=== PATIENT | male | born 1940 | race Caucasian/White ===

== ENCOUNTER 2016-12-22 02:23 | Emergency (ER) | payer MEDICARE ==
[~2016-12-22] VITALS: Ht 180.3 cm; Wt 95.0 kg
[~2016-12-22 02:23] MED LIST: ASPI81TA82 PO; CARV12.5 PO; CENTTAB9 PO; CHLOR25 PO; GLUCTAB PO; LORA.5 PO; LORTA5 PO; NIFE1TAB86 PO; TAMS0.4C67 PO; TEMA15 PO
[2016-12-22 02:24] VITALS: BP 163/72; PULSE 62; RESP 16; TEMP 97.7; O2SAT 95
[2016-12-22 02:54] VITALS: BP 174/78; PULSE 62; RESP 18; O2SAT 97
[2016-12-22] MEDS ORDERED: SODIUM CHLOR 0.9% 1000 ML INJ 1,000 ML IV ONE (02:57)
[2016-12-22] MEDS ORDERED: SODIUM CHLORIDE 0.9% FLUSH 10 ML FLUSH IVF PRN (03:00)
[2016-12-22 03:15] VITALS: O2SAT 99
[2016-12-22 03:19] LABS: AUTOMATED NEUTROPHIL # 4.1 TH/MM3 (1.8-7.7); BASOPHIL # 0.1 TH/MM3 (0-0.2); BASOPHIL % 1.1 % (0.0-2.0); EOSINOPHIL # 0.5 TH/MM3 (0-0.4); EOSINOPHIL % 6.6 % (0.0-4.0); HEMATOCRIT 45.1 % (39.0-51.0); HEMO FLAGS DIFF FINAL; LYMPH % 24.3 % (9.0-44.0); LYMPHOCYTE # 1.8 TH/MM3 (1.0-4.8); MEAN CELL VOLUME 89.5 FL (80.0-100.0); MEAN CORPUSCULAR HEMOGLOBIN 29.4 PG (27.0-34.0); MEAN CORPUSCULAR HGB CONC 32.8 % (32.0-36.0); MONO % 12.3 % (0.0-8.0); NEUT % 55.7 % (16.0-70.0); PLATELET COUNT 180 TH/MM3 (150-450); RED BLOOD COUNT 5.03 MIL/MM3 (4.50-5.90); RED CELL DISTRIBUTION WIDTH 13.8 % (11.6-17.2); WHITE BLOOD COUNT 7.4 TH/MM3 (4.0-11.0)
[2016-12-22 03:34] LABS: BICARBONATE 30.5 MEQ/L (21.0-32.0); MAGNESIUM 2.1 MG/DL (1.5-2.5); POTASSIUM 4.2 MEQ/L (3.5-5.1)
--- NOTE | 2016-12-22 03:40 | PD ---
HPI Chief Complaint: Dizziness Time Seen by Provider: 02:57 Travel History International Travel<30 days: No Contact w/Intl Traveler<30days: No Traveled to known affect area: No History of Present Illness HPI 76 yo M had a brief episode of dizziness, lightheadedness in quality. Evidently he's had dizziness intermittently for the past couple days. Since the patient was in the hospital while visiting a family member and felt dizziness he decided to be seen in the ER. Additional complaints include a burning sensation in the eyes. He has had no visual change. He has had no chest pain or shortness of breath nausea vomiting fever or diaphoresis. No new medication or change in medications. No black stool. PFSH Past Medical History Hx Anticoagulant Therapy: Yes (81MG ASPIRIN) Cancer: No Cardiovascular Problems: Yes Diabetes: Yes (TYPE II) Patient Takes Glucophage: No Diminished Hearing: No Endocrine: Yes GERD: Yes Glaucoma: No Genitourinary: Yes (bph) Hepatitis: No Hiatal Hernia: Yes Hypertension: Yes Immune Disorder: No Medical other: Yes (GERD HX) Musculoskeletal: Yes (arthritis in hands) Neurologic: Yes (neuropathy feet) Reproductive: No Respiratory: Yes (SLEEP APNEA--USES C-PAP AT NIGHT) Immunizations Current: Yes Sleep Apnea: Yes (USES CPAP) Thyroid Disease: No Past Surgical History Abdominal Surgery: No AICD: No Cardiac Surgery: No Ear Surgery: No Endocrine Surgery: No Eye Surgery: Yes (r cataract repair ) Genitourinary Surgery: No Gynecologic Surgery: No Joint Replacement: No Oral Surgery: No Pacemaker: No Thoracic Surgery: No Other Surgery: Yes (DEJA RUPTURED QUADRACEP REPAIR) Social History Alcohol Use: Yes (OCCAS.) Tobacco Use: No Substance Use: No Allergies-Medications (Allergen,Severity, Reaction): Coded Allergies: No Known Allergies (Verified , 12/22/16) Reported Meds & Prescriptions Reported Meds & Active Scripts Active Review of Systems Except as stated in HPI: all other systems reviewed are Neg General / Constitutional: No: Fever, Chills Neurologic: Positive: Dizziness, No: Syncope, Focal Abnormalities, Coordination Problem, Tremor, Ataxia, Headache, Change in Mentation, Slurred Speech Physical Exam Narrative GENERAL: 76-year-old male pleasant well-nourished well-developed SKIN: Focused skin assessment warm/dry. HEAD: Atraumatic. Normocephalic. EYES: Pupils equal and round. No scleral icterus. No injection or drainage. ENT: No nasal bleeding or discharge. Mucous membranes pink and moist. NECK: Trachea midline. No JVD. CARDIOVASCULAR: Regular rate and rhythm. No murmur appreciated. RESPIRATORY: No accessory muscle use. Clear to auscultation. Breath sounds equal bilaterally. GASTROINTESTINAL: Abdomen soft, non-tender, nondistended. Hepatic and splenic margins not palpable. MUSCULOSKELETAL: No obvious deformities. No clubbing. No cyanosis. No edema. NEUROLOGICAL: Awake and alert. No obvious cranial nerve deficits. Motor grossly within normal limits. Normal speech. PSYCHIATRIC: Appropriate mood and affect; insight and judgment normal. Data Data Last Documented VS Vital Signs Date Time Temp Pulse Resp B/P Pulse Ox O2 Delivery O2 Flow Rate FiO2 12/22/16 03:52 166/68 12/22/16 03:50 61 18 95 Room Air 12/22/16 02:24 97.7 Vital signs reviewed Orders Electrocardiogram (12/22/16 02:57) Basic Metabolic Panel (Bmp) (12/22/16 02:57) Complete Blood Count With Diff (12/22/16 02:57) Magnesium (Mg) (12/22/16 02:57) Blood Glucose (12/22/16 02:57) Ecg Monitoring (12/22/16 02:57) Iv Access Insert/Monitor (12/22/16 02:57) Oximetry (12/22/16 02:57) Sodium Chloride 0.9% Flush (Ns Flush) (12/22/16 03:00) Sodium Chlor 0.9% 1000 Ml Inj (Ns 1000 M (12/22/16 02:57) Labs Laboratory Tests Test 12/22/16 03:03 White Blood Count 7.4 TH/MM3 Red Blood Count 5.03 MIL/MM3 Hemoglobin 14.8 GM/DL Hematocrit 45.1 % Mean Corpuscular Volume 89.5 FL Mean Corpuscular Hemoglobin 29.4 PG Mean Corpuscular Hemoglobin 32.8 % Concent Red Cell Distribution Width 13.8 % Platelet Count 180 TH/MM3 Mean Platelet Volume 9.3 FL Neutrophils (%) (Auto) 55.7 % Lymphocytes (%) (Auto) 24.3 % Monocytes (%) (Auto) 12.3 % Eosinophils (%) (Auto) 6.6 % Basophils (%) (Auto) 1.1 % Neutrophils # (Auto) 4.1 TH/MM3 Lymphocytes # (Auto) 1.8 TH/MM3 Monocytes # (Auto) 0.9 TH/MM3 Eosinophils # (Auto) 0.5 TH/MM3 Basophils # (Auto) 0.1 TH/MM3 CBC Comment DIFF FINAL Differential Comment Sodium Level 140 MEQ/L Potassium Level 4.2 MEQ/L Chloride Level 104 MEQ/L Carbon Dioxide Level 30.5 MEQ/L Anion Gap 6 MEQ/L Blood Urea Nitrogen 17 MG/DL Creatinine 1.24 MG/DL Estimat Glomerular Filtration 56 ML/MIN Rate Random Glucose 164 MG/DL Calcium Level 9.5 MG/DL Magnesium Level 2.1 MG/DL MDM Medical Decision Making Medical Screen Exam Complete: Yes Emergency Medical Condition: Yes Medical Record Reviewed: Yes Differential Diagnosis Anemia, arrhythmia, electrolyte imbalance, paresthesias, vasovagal episodes, dehydration, hypertension Narrative Course CBC & BMP Diagram 12/22/16 03:03 EKG shows a sinus rhythm at a rate of 61 without ischemic injury pattern or arrhythmia The workup is unremarkable and the patient will follow up with primary care provider. Diagnosis Primary Impression: Dizziness Referrals: Primary Care Physician 2 days Additional Instructions: You have a choice when it comes to health care, and we are glad that you chose [facility]. Hopefully, we have met your expectations on today's visit. You are welcome to return to [facility] at any time, as we are committed to meeting the health care needs of our community. Med/Other Pt SpecificInfo: No Change to Meds Disposition: 01 DISCHARGE HOME Condition: Stable Marty Sadler MD Dec 22, 2016 03:40
[2016-12-22 03:50] VITALS: BP 179/81; PULSE 61; RESP 18; O2SAT 95
[2016-12-22 03:52] VITALS: BP 166/68
--- NOTE | 2016-12-22 07:51 | EKG ---
Date Performed: 12/22/2016 Time Performed: 02:49:35 PTAGE: 76 years EKG: BASELINE ARTIFACT PRESENT. Probable Sinus rhythm NORMAL ECG COMPARED TO PRIOR ELECTROCARDIOGRAM, Both EKGs have significant artifact but rate has slo wed. PREVIOUS TRACING : 06/04/2015 19.30 DOCTOR: Yimi Patten Interpretating Date/Time 12/22/2016 07:50:11
== END 2016-12-22 04:36 | disposition home or self-care (01) ==
LOC: NEPE 02:23
DX: R42 Dizziness and giddiness (principal); E11.9 Type 2 diabetes mellitus without complications; I10 Essential (primary) hypertension
CPT/HCPCS: 80048; 83735; 85025; 93005; 99284; J7030

== ENCOUNTER 2017-02-05 18:06 | Emergency (ER) | payer MEDICARE ==
[~2017-02-05] VITALS: Ht 182.9 cm; Wt 95.5 kg
[2017-02-05 18:09] VITALS: BP 167/77; PULSE 74; RESP 22; TEMP 98.5; O2SAT 96
--- NOTE | 2017-02-05 18:16 | PD ---
Physical Exam Date Seen by Provider: Feb 05, 2017 Time Seen by Provider: 18:14 Narrative 76 yo male here for right leg swelling and redness. Seen by PCP today and sent here for evaluation of possible blood clot. Denies pain. Been swollen for a few days. No injuries. No other medical issues reported today. Vitals are stable in triage. Awaiting bed placement. Data Data Last Documented VS Vital Signs Date Time Temp Pulse Resp B/P Pulse Ox O2 Delivery O2 Flow Rate FiO2 02/05/17 18:09 98.5 74 22 167/77 96 Room Air [facility] Medical Record Reviewed: Yes Supervised Visit with DEACON: No Gerardo Landin Feb 05, 2017 18:15
--- NOTE | 2017-02-05 18:43 | PD ---
HPI Chief Complaint: Medical Clearance Time Seen by Provider: 18:43 Travel History International Travel<30 days: No Contact w/Intl Traveler<30days: No Traveled to known affect area: No History of Present Illness HPI 76-year-old male presents the emergency department with his son being seen in his primary care physician's office. 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 Patient is noted to have some erythematous discoloration to the right lower extremity with question of edema, so he was sent here for rule out of DVT. His nose that the patient has a fairly significant cough which is productive here, for which she states he's been placed on Keflex 500 mg 3 times a day 5 days ago. He states the sputum has gone from green to more of a clear, but he does have increased shortness of breath and wheezing with exertion. No history of COPD or smoking in the past. No history of asthma. He states he first thought it was more postnasal drip but now seems to be settled in his chest. He denies chest pain at this time. He denies fever, chills, or other symptoms. He denies significant pain in the right lower extremity. Patient was recently switched from aspirin to Plavix which she has not started at this time. He states his cough is been keeping him up at night for the past several days. He has no known drug allergies. PFSH Past Medical History Hx Anticoagulant Therapy: Yes (81MG ASPIRIN) Cancer: No Cardiovascular Problems: Yes Diabetes: Yes Diminished Hearing: No Endocrine: Yes GERD: Yes Glaucoma: No Genitourinary: Yes (bph) Hepatitis: No Hiatal Hernia: Yes Hypertension: Yes Immune Disorder: No Musculoskeletal: Yes (arthritis in hands) Neurologic: Yes (neuropathy feet) Reproductive: No Respiratory: Yes (SLEEP APNEA--USES C-PAP AT NIGHT) Immunizations Current: Yes Sleep Apnea: Yes (USES CPAP) Thyroid Disease: No Past Surgical History Abdominal Surgery: No AICD: No Cardiac Surgery: No Ear Surgery: No Endocrine Surgery: No Eye Surgery: Yes (r cataract repair ) Genitourinary Surgery: No Gynecologic Surgery: No Joint Replacement: No Oral Surgery: No Pacemaker: No Thoracic Surgery: No Other Surgery: Yes (DEJA RUPTURED QUADRACEP REPAIR) Social History Alcohol Use: Yes (OCCAS.) Tobacco Use: No Substance Use: No Allergies-Medications (Allergen,Severity, Reaction): Coded Allergies: No Known Allergies (Verified , 02/05/17) Reported Meds & Prescriptions Reported Meds & Active Scripts Active Ventolin Hfa 18 GM Inh (Albuterol Sulfate) 90 Mcg/Act Aer 2 Puff INH Q4-6H PRN Reported Keflex (Cephalexin) 500 Mg Capsule 500 Mg PO TID 10 Days Multi Vitamin Daily (Multiple Vitamin) 1 Tab Tab 1 Tab PO DAILY Fish Oil ([place]-3 Fatty Acids) 300 Mg Capsule 1 Tab PO DAILY Vitamin D3 (Cholecalciferol) 2,000 Unit Cap 2,000 Units PO DAILY Glucosamine 1,500 Mg Tab 1,500 Mg PO DAILY Co Q 10 (Coenzyme Q10 (Ubidecarenone)) 10 Mg Cap 1 Tab PO DAILY Tylenol (Acetaminophen) 325 Mg Tab 650 Mg PO Q6H PRN Zyrtec (Cetirizine HCl) 10 Mg Capsule 1 Tab PO DAILY Cymbalta DR (Duloxetine HCl) 30 Mg Capdr 30 Mg PO DAILY Gabapentin 300 Mg Cap 300 Mg PO HS Proscar (Finasteride) 5 Mg Tab 5 Mg PO DAILY Do not crush. Flomax (Tamsulosin HCl) 0.4 Mg Cap 0.4 Mg PO HS Metformin ER (Metformin HCl) 500 Mg Tab 1 Tab PO BID Procardia XL (Nifedipine) 60 Mg Tab 60 Mg PO BID Coreg (Carvedilol) 12.5 Mg Tab 12.5 Mg PO BID Review of Systems Except as stated in HPI: all other systems reviewed are Neg General / Constitutional: No: Fever, Chills Eyes: No: Visual changes HENT: Positive: Rhinitis, Rhinorrhea, Congestion, No: Headaches Cardiovascular: No: Chest Pain or Discomfort Respiratory: Positive: Cough, Shortness of Breath, Wheezing, No: Orthopnea, Hemoptysis, Night Sweats, Pleuritic Pain Gastrointestinal: No: Abdominal Pain Genitourinary: No: Dysuria Musculoskeletal: No: Pain Skin: No Rash Neurologic: No: Weakness Psychiatric: No: Depression Endocrine: No: Polydipsia Hematologic/Lymphatic: No: Easy Bruising Physical Exam Narrative GENERAL: Patient appears in no acute distress. SKIN: Warm and dry. Normal color. Normal turgor. Patient has a generalized mild erythema/ruborous discoloration to the right lower extremity from the knee to the anterior ankle with perhaps some mild edema noted. The right leg does not feel warm or cool to touch. HEAD: Atraumatic. Normocephalic. EYES: Pupils equal and round. No scleral icterus. No injection or drainage. ENT: No nasal bleeding or discharge. Mucous membranes pink and moist. NECK: Trachea midline. No JVD. CARDIOVASCULAR: Regular rate and rhythm. RESPIRATORY: No accessory muscle use. Patient has rhonchi and wheezing to the left lower lobe not cleared with cough. No obvious egophony. Breath sounds equal bilaterally. GASTROINTESTINAL: Abdomen soft, non-tender, nondistended. Hepatic and splenic margins not palpable. MUSCULOSKELETAL: Extremities without clubbing, cyanosis, less than 1+ nonpitting edema to the right lower extremity. No obvious deformities. Range of motion is full. Sensation is normal. Capillary refill is brisk. Negative Homans sign on the right. NEUROLOGICAL: Awake and alert. No obvious cranial nerve deficits. Motor grossly within normal limits. Five out of 5 muscle strength in the arms and legs. Normal speech. PSYCHIATRIC: Appropriate mood and affect; insight and judgment normal. Data Data Last Documented VS Vital Signs Date Time Temp Pulse Resp B/P Pulse Ox O2 Delivery O2 Flow Rate FiO2 02/05/17 21:31 80 18 207/89 97 Room Air 02/05/17 18:09 98.5 Orders Electrocardiogram (02/05/17 18:57) Complete Blood Count With Diff (02/05/17 18:57) Comprehensive Metabolic Panel (02/05/17 18:57) Chest, Pa & Lat (02/05/17 18:57) Ecg Monitoring (02/05/17 18:57) Iv Access Insert/Monitor (02/05/17 18:57) Oximetry (02/05/17 18:57) Oxygen Administration (02/05/17 18:57) Albuterol-Ipratropium Neb (Duoneb Neb) (02/05/17 19:00) Sodium Chloride 0.9% Flush (Ns Flush) (02/05/17 19:00) Us Leg Venous Doppler (02/05/17 18:57) Prothrombin Time / Inr (Pt) (02/05/17 18:57) Act Partial Throm Time (Ptt) (02/05/17 18:57) B-Type Natriuretic Peptide (02/05/17 19:36) Ckmb (Isoenzyme) Profile (02/05/17 19:00) Troponin I (02/05/17 19:00) CKMB (02/05/17 19:00) CKMB% (02/05/17 19:00) Carvedilol (Coreg) (02/05/17 21:30) Nifedipine Sr (Procardia Xl) (02/05/17 21:30) Labs Laboratory Tests Test 02/05/17 19:00 White Blood Count 10.4 TH/MM3 Red Blood Count 4.72 MIL/MM3 Hemoglobin 14.4 GM/DL Hematocrit 41.2 % Mean Corpuscular Volume 87.4 FL Mean Corpuscular Hemoglobin 30.4 PG Mean Corpuscular Hemoglobin 34.8 % Concent Red Cell Distribution Width 13.7 % Platelet Count 251 TH/MM3 Mean Platelet Volume 9.6 FL Neutrophils (%) (Auto) 65.3 % Lymphocytes (%) (Auto) 17.7 % Monocytes (%) (Auto) 10.9 % Eosinophils (%) (Auto) 5.2 % Basophils (%) (Auto) 0.9 % Neutrophils # (Auto) 6.8 TH/MM3 Lymphocytes # (Auto) 1.8 TH/MM3 Monocytes # (Auto) 1.1 TH/MM3 Eosinophils # (Auto) 0.5 TH/MM3 Basophils # (Auto) 0.1 TH/MM3 CBC Comment DIFF FINAL Differential Comment Prothrombin Time 10.4 SEC Prothromb Time International 0.9 RATIO Ratio Activated Partial 29.9 SEC Thromboplast Time Sodium Level 136 MEQ/L Potassium Level 3.8 MEQ/L Chloride Level 103 MEQ/L Carbon Dioxide Level 24.2 MEQ/L Anion Gap 9 MEQ/L Blood Urea Nitrogen 19 MG/DL Creatinine 1.27 MG/DL Estimat Glomerular Filtration 55 ML/MIN Rate Random Glucose 117 MG/DL Calcium Level 8.9 MG/DL Total Bilirubin 0.6 MG/DL Aspartate Amino Transf 22 U/L (AST/SGOT) Alanine Aminotransferase 26 U/L (ALT/SGPT) Alkaline Phosphatase 90 U/L Total Creatine Kinase 176 U/L Creatine Kinase MB 7.5 NG/ML Troponin I LESS THAN 0.02 NG/ML B-Type Natriuretic Peptide 83 PG/ML Total Protein 7.7 GM/DL Albumin 3.6 GM/DL MDM Medical Decision Making Medical Screen Exam Complete: Yes Emergency Medical Condition: Yes Medical Record Reviewed: Yes Differential Diagnosis Possible right lower leg DVT. Bronchitis. Pneumonia. Possible PE. Narrative Course Patient appears medically stable at time of exam. Chest x-ray PA and lateral is ordered as well as DuoNeb 1. Laboratory including CBC, CMP, and proBNP. EKG shows sinus rhythm with occasional VPCs but without significant ST-T changes. This is reviewed with Dr. Rudd. CBC is unremarkable. CMP is unremarkable. Troponin is negative. ProBNP is 83. Chest x-ray shows no acute process per radiologist. Lower extremity ultrasound shows no acute process or DVT. Patient did improve with DuoNeb symptomatically. Patient should continue his Keflex as previously prescribed and use albuterol metered-dose inhaler 2 puffs every 4-6 hours when necessary cough and wheeze. Patient should follow with his primary care physician as needed. Diagnosis Primary Impression: Wheezy bronchitis Additional Impression: Edema of right lower extremity Referrals: Primary Care Physician Patient Instructions: General Instructions, How to Use a Metered-Dose Inhaler ( ED), Leg Edema (ED), Wheezing (ED) Additional Instructions: EKG shows sinus rhythm with occasional VPCs but without significant ST-T changes. This is reviewed with Dr. Rudd. CBC is unremarkable. CMP is unremarkable. Troponin is negative. ProBNP is 83. Chest x-ray shows no acute process per radiologist. Lower extremity ultrasound shows no acute process or DVT. Patient did improve with DuoNeb symptomatically. Patient should continue his Keflex as previously prescribed and use albuterol metered-dose inhaler 2 puffs every 4-6 hours when necessary cough and wheeze. Patient should follow with his primary care physician as needed. Scripts Albuterol 18 GM Inh (Ventolin Hfa 18 GM Inh)90 Mcg/Act Aer2 Puff INH Q4-6H PRN ( SHORTNESS OF BREATH) #1 INHALER Prov:Britney Sanchez 02/05/17 Condition: Stable [place] Feb 05, 2017 18:43
[2017-02-05] MEDS ORDERED: RESP: ALBUTEROL 2.5 MG/IPRATROPIUM 0.5 MG NEB (SCH) INH ONE (19:00)
[2017-02-05] MEDS ORDERED: SODIUM CHLORIDE 0.9% FLUSH 10 ML FLUSH IVF PRN (19:00)
[2017-02-05] MEDS ORDERED: OMEG300C5 PO (19:03)
[2017-02-05] MEDS ORDERED: TAMS5CAP PO (19:03)
[2017-02-05] MEDS ORDERED: NIFE1TAB86 PO (19:03)
[2017-02-05] MEDS ORDERED: PROS5TAB PO (19:03)
[2017-02-05] MEDS ORDERED: VITA2000 PO (19:03)
[2017-02-05] MEDS ORDERED: GABA300C5 PO (19:03)
[2017-02-05] MEDS ORDERED: CEPH-460 PO (19:03)
[2017-02-05] MEDS ORDERED: CARV12.5 PO (19:03)
[2017-02-05] MEDS ORDERED: MULT1TAB46 PO (19:03)
[2017-02-05] MEDS ORDERED: CETI10CA3 PO (19:03)
[2017-02-05] MEDS ORDERED: CYMB30CA PO (19:03)
[2017-02-05] MEDS ORDERED: GLUC15009 PO (19:03)
[2017-02-05] MEDS ORDERED: CO Q10CA PO (19:03)
[2017-02-05] MEDS ORDERED: TYLE325T PO (19:03)
[2017-02-05] MEDS ORDERED: METF-639 PO (19:03)
[2017-02-05 19:14] VITALS: RESP 18; O2SAT 97
[2017-02-05 19:15] VITALS: BP 201/95; PULSE 68; RESP 18; O2SAT 97
[2017-02-05 19:37] LABS: AUTOMATED NEUTROPHIL # 6.8 TH/MM3 (1.8-7.7); BASOPHIL # 0.1 TH/MM3 (0-0.2); BASOPHIL % 0.9 % (0.0-2.0); EOSINOPHIL # 0.5 TH/MM3 (0-0.4); EOSINOPHIL % 5.2 % (0.0-4.0); HEMATOCRIT 41.2 % (39.0-51.0); HEMO FLAGS DIFF FINAL; LYMPH % 17.7 % (9.0-44.0); LYMPHOCYTE # 1.8 TH/MM3 (1.0-4.8); MEAN CELL VOLUME 87.4 FL (80.0-100.0); MEAN CORPUSCULAR HEMOGLOBIN 30.4 PG (27.0-34.0); MEAN CORPUSCULAR HGB CONC 34.8 % (32.0-36.0); MONO % 10.9 % (0.0-8.0); NEUT % 65.3 % (16.0-70.0); PLATELET COUNT 251 TH/MM3 (150-450); RED BLOOD COUNT 4.72 MIL/MM3 (4.50-5.90); RED CELL DISTRIBUTION WIDTH 13.7 % (11.6-17.2); WHITE BLOOD COUNT 10.4 TH/MM3 (4.0-11.0)
[2017-02-05 19:53] LABS: APTT (PATIENT) 29.9 SEC (24.3-30.1); INTERNATIONAL NORMALIZED RATIO 0.9 RATIO; PROTHROMBIN TIME - PATIENT 10.4 SEC (9.8-11.6)
[2017-02-05 20:05] LABS: ALT (GPT) 26 U/L (12-78); ANION GAP 9 MEQ/L (5-15); AST (GOT) 22 U/L (15-37); BICARBONATE 24.2 MEQ/L (21.0-32.0); BLOOD UREA NITROGEN 19 MG/DL (7-18); CHLORIDE 103 MEQ/L (98-107); GLOMERULAR FILTRATION RATE 55 ML/MIN (>89); POTASSIUM 3.8 MEQ/L (3.5-5.1); SODIUM (NA) 136 MEQ/L (136-145)
[2017-02-05 20:10] LABS: ALKALINE PHOSPHATASE 90 U/L (45-117); TOTAL BILIRUBIN ADULT 0.6 MG/DL (0.2-1.0)
[2017-02-05 20:12] LABS: CREATINE KINASE 176 U/L (39-308)
[2017-02-05 20:15] VITALS: BP 146/79; PULSE 82; RESP 18; O2SAT 97
[2017-02-05 20:45] LABS: CKMB 7.5 NG/ML (0.5-3.6)
--- NOTE | 2017-02-05 21:16 | RADRPT ---
EXAM DATE/TIME: 02/05/2017 20:21 [facility] COMPARISON: No previous studies available for comparison. INDICATIONS : Wheezing and congestion. MEDICAL HISTORY : None. SURGICAL HISTORY : Cholecystectomy. ENCOUNTER: Initial ACUITY: 1 day PAIN SCORE: 0/10 LOCATION: Bilateral chest FINDINGS: PA and lateral views of the chest demonstrate the lungs to be symmetrically aerated without evidence of mass, infiltrate or effusion. The cardiomediastinal contours are unremarkable. Osseous structure s are intact. CONCLUSION: 1. No active disease. Adam Cartagena MD on February 05, 2017 at 21:13 Board Certified Radiologist. This report was verified electronically.
[2017-02-05] MEDS ORDERED: CARVEDILOL 12.5 MG TAB PO ONE (21:30)
[2017-02-05] MEDS ORDERED: NIFEdipine 60 MG SUSTAINED RELEASE TAB PO ONE (21:30)
[2017-02-05 21:31] VITALS: BP 207/89; PULSE 80; RESP 18; O2SAT 97
--- NOTE | 2017-02-05 21:36 | RADRPT ---
EXAM DATE/TIME: 02/05/2017 20:23 [facility] COMPARISON: No previous studies available for comparison. INDICATIONS : Right leg redness and edema. MEDICAL HISTORY : Hypertension. Gastroesophageal reflux disease. Sleep apnea. Hernia, hiatal. Arthritis. Diabete s. SURGICAL HISTORY : Cholecystectomy. Right rotator cuff. Bilateral quad repair. ENCOUNTER: Initial ACUITY: 2 day PAIN SCORE: 1/10 LOCATION: Right leg. TECHNIQUE: Venous ultrasound of the leg was performed from the inguinal ligament to the proximal calf. Real-nicolasa e, color Doppler and spectral tracing, compression and augmentation techniques were used. FINDINGS: There is normal compressibility of the deep venous system from the inguinal region to the proximal ca lf. No echogenic clot is seen in the lumen of the common femoral, femoral, popliteal, and posterior tibial veins. There is a normal response of the venous system to proximal and distal augmentation an d respiration. CONCLUSION: Normal examination. Adam Cartagena MD on February 05, 2017 at 21:34 Board Certified Radiologist. This report was verified electronically.
[2017-02-05] MEDS ORDERED: VENTAER INH (21:37)
--- NOTE | 2017-02-06 16:18 | EKG ---
Date Performed: 02/05/2017 Time Performed: 19:12:30 PTAGE: 76 years EKG: Sinus rhythm WITH OCCASIONAL VENTRICULAR PREMATURE COMPLEXES BORDERLINE ECG PREVIOUS TRACING : 12/22/2016 02.49 Since previous tracing, the PVCs are new. DOCTOR: Bandar Perry Interpretating Date/Time 02/06/2017 16:17:55
== END 2017-02-05 22:54 | disposition home or self-care (01) ==
LOC: NEPE 18:06
DX: J40 Bronchitis, not specified as acute or chronic (principal); R06.02 Shortness of breath; R60.0 Localized edema; I10 Essential (primary) hypertension; Z79.02 Long term (current) use of antithrombotics/antiplatelets
CPT/HCPCS: 71020; 80053; 82550; 82552; 83880; 84484; 85025; 85610; 85730; 93005; 93971; 94664; 99285

== ENCOUNTER 2017-02-15 13:27 | Day surgery (SDC) | payer MEDICARE ==
[~2017-02-15 13:27] MED LIST changes: -ASPI81TA82 PO; -CENTTAB9 PO; +CEPH-460 PO; +CETI10CA3 PO; -CHLOR25 PO; +CO Q10CA PO; +CYMB30CA PO; +GABA300C5 PO; +GLUC15009 PO; -GLUCTAB PO; -LORA.5 PO; -LORTA5 PO; +METF-639 PO; +MULT1TAB46 PO; +OMEG300C5 PO; +PROS5TAB PO; -TAMS0.4C67 PO; +TAMS5CAP PO; -TEMA15 PO; +TYLE325T PO; +VENTAER INH; +VITA2000 PO
[2017-02-15 13:39] VITALS: BP 200/91; PULSE 66; RESP 18; TEMP 97.4; O2SAT 95
--- NOTE | 2017-02-15 20:36 | RADRPT ---
EXAM DATE/TIME: 02/15/2017 00:00 [facility] COMPARISON : No previous studies available for comparison. INDICATIONS : Vertebral artery stenosis OBJECTIVE: Temperature: 97.4 Heart Rate: 66 Blood Pressure: 200/91 Respiratory: 18 Oximetry: 95 PNEUMONIA VACCINE: HISTORY OF PRESENT ILLNESS: The patient had onset over the last couple of months of episodes of dizziness and vertigo. He underwe nt imaging evaluation of the cerebral circulation which identified some steno-occlusive disease, of g reatest concern in the posterior circulation. He was referred to Dr. Tran who felt that the sym ptoms were likely to be largely related to inner ear pathology. The patient was referred to Dr. Gordon cueto. He has had a couple of appointments and underwent some positional manipulations which do seem to h ave significantly improved his symptoms. He has not had any syncopal episodes. Is not experience any new or concerning visual symptomatology or other manifestations of TIA. The patient has started antip latelet treatment and statin medications. PAST MEDICAL HISTORY : 1. Hypertension. 2. Diabetes mellitus type 1. 3. Gastroesopahgeal reflux disease. 4. Hypercholesterolemia. 5. Sleep apnea. 6. cranial blockage 7. neuropathy PAST SURGICAL HISTORY : 1. Cholecystectomy. 2. hiatal hernia 3. right cataract 4. bilateral quad repair 5. right rotator repair SOCIAL HISTORY : Social alcohol use. Tobacco;none. ALLERGIES: 1. NKDA MEDICATIONS: 1. Glumetza (Metformin) 500 mg q.h.s. 2. nifedipine 60 mg b.i.d. 3. Coreg (Carvedilol) 12.5 mg q.d. 4. Plavix (Clopidogrel Bisulfate) 75 mg q.d. 5. Neurontin (Gabapentin)300 mg q.d. 6. [id number] qd 7. proscar 5mg qd IMAGING STUDIES: MRA and CTA examinations recently performed with radiology [facility] revealed satisfactory a nterior circulation vessels. The right vertebral artery is small and diffusely diseased and appears t o be distally occluded. The left vertebral artery is notable for moderately high grade focal stenosis just proximal to the basilar artery origin. 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 Treatment of t he focal vertebral artery stenosis would be technically challenging and considered high risk. The les ion could likely be treated with coronary stent technology, however this would only be recommended in the setting of progressive clinical deterioration without alternative explanation, for example in th e setting of persistent significant or crescendo posterior circulation TIA. PLAN: Optimize medical management. Endovascular treatment of left vertebral disease is feasible, however sh ould be considered as a salvage intervention of last resort.This opinion was discussed at length with the patient and his following review of history, available medical records and imaging studies as described. I certainly appreciate the opportunity to assist in the care of this patient. Truong Giraldo MD on February 15, 2017 at 20:22 Board Certified Radiologist. This report was verified electronically.
== END 2017-02-15 14:15 | disposition home or self-care (01) ==
LOC: HROP 13:27 → HRIP 13:30 → HROP 14:15
PROVIDERS: ATTEND Psychiatry & Neurology Vascular Neurology
DX: I65.03 Occlusion and stenosis of bilateral vertebral arteries (principal); E11.9 Type 2 diabetes mellitus without complications; G47.30 Sleep apnea, unspecified; E78.00 Pure hypercholesterolemia, unspecified; K21.9 Gastro-esophageal reflux disease without esophagitis; G62.9 Polyneuropathy, unspecified; Z79.4 Long term (current) use of insulin; Z79.84 Long term (current) use of oral hypoglycemic drugs
CPT/HCPCS: 99211; G0463

== ENCOUNTER 2017-06-06 15:42 | Emergency (ER) | payer MEDICARE ==
[~2017-06-06] VITALS: Ht 203.2 cm; Wt 94.0 kg
[2017-06-06 16:29] VITALS: BP 199/88; PULSE 85; RESP 16; TEMP 97.9; O2SAT 97
[2017-06-06] MEDS ORDERED: PLAV75TA29 PO (16:58)
[2017-06-06] MEDS ORDERED: GABA300C5 PO (16:58)
[2017-06-06] MEDS ORDERED: GABA600T PO (16:58)
[2017-06-06] MEDS ORDERED: TAMS0.4C4 PO (16:58)
[2017-06-06] MEDS ORDERED: LIPI40TA PO (16:58)
--- NOTE | 2017-06-06 17:59 | PD ---
HPI Chief Complaint: Fall Time Seen by Provider: 17:22 Travel History International Travel<30 days: No Contact w/Intl Traveler<30days: No Traveled to known affect area: No History of Present Illness HPI 77-year-old male presents to the emergency room for evaluation of head injury, left wrist pain, multiple abrasions, and right upper chest pain after trip and fall 2 hours prior to arrival. Patient states he tripped on the ledge at his front door and fell forward on outstretched wrist. He struck his face on the concrete. Did not lose consciousness. He is on Plavix. No nausea or vomiting. No significant headache or visual changes. Reports mild left wrist pain that is worse with range of motion. Reports mild right upper chest pain that is worse with range of motion of the arm. Last tetanus was within 5 years. 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 ) Reproductive: No Respiratory: Yes (SLEEP APNEA--USES C-PAP AT NIGHT) Immunizations Current: Yes (SHINGLES ) Sleep Apnea: Yes (USES CPAP) Thyroid Disease: No ?: Not Past Surgical History Abdominal Surgery: No AICD: No Cardiac Surgery: No Cholecystectomy: Yes Ear Surgery: No Endocrine Surgery: No Eye Surgery: Yes (bilat cataract repair ) Genitourinary Surgery: No Gynecologic Surgery: No Joint Replacement: No Oral Surgery: No Pacemaker: No Thoracic Surgery: No Other Surgery: Yes (DEJA RUPTURED QUADRACEP REPAIR) Social History Alcohol Use: Yes (OCCAS.) Tobacco Use: No Substance Use: No Allergies-Medications (Allergen,Severity, Reaction): Coded Allergies: No Known Allergies (Verified Adverse Reaction, Unknown, 06/06/17) Reported Meds & Prescriptions Reported Meds & Active Scripts Active Ventolin Hfa 18 GM Inh (Albuterol Sulfate) 90 Mcg/Act Aer 2 Puff INH Q4-6H PRN Reported Lipitor (Atorvastatin Calcium) 40 Mg Tab 40 Mg PO HS Plavix (Clopidogrel Bisulfate) 75 Mg Tab 75 Mg PO DAILY Tamsulosin (Tamsulosin HCl) 0.4 Mg Cap 0.4 Mg PO BID Gabapentin 300 Mg Cap 300 Mg PO DAILY Gabapentin 600 Mg Tab 600 Mg PO HS Multi Vitamin Daily (Multiple Vitamin) 1 Tab Tab 1 Tab PO DAILY Vitamin D3 (Cholecalciferol) 2,000 Unit Cap 2,000 Units PO DAILY Glucosamine 1,500 Mg Tab 1,500 Mg PO DAILY Co Q 10 (Coenzyme Q10 (Ubidecarenone)) 10 Mg Cap 1 Tab PO DAILY Zyrtec (Cetirizine HCl) 10 Mg Capsule 1 Tab PO DAILY Cymbalta DR (Duloxetine HCl) 30 Mg Capdr 30 Mg PO DAILY Proscar (Finasteride) 5 Mg Tab 5 Mg PO DAILY Do not crush. Metformin ER (Metformin HCl) 500 Mg Tab 1 Tab PO BID Procardia XL (Nifedipine) 60 Mg Tab 60 Mg PO BID Coreg (Carvedilol) 12.5 Mg Tab 12.5 Mg PO BID Review of Systems Except as stated in HPI: all other systems reviewed are Neg Physical Exam Narrative GENERAL: Well-nourished, well-developed male in no acute distress. Afebrile. Ambulatory. SKIN: Focused skin assessment warm/dry. HEAD: Normocephalic. Moderate periorbital edema over the right eye. EYES: PERRL, EOMI, no discharge or injection. No scleral icterus. NECK: Supple, trachea midline. No JVD or lymphadenopathy. ENT: Mucosa pink and moist. No erythema or exudates. No uvular edema. No uvular , palatal, or tonsillar deviation. Airway patent. Nasal turbinates appear normal without nasal blood, purulent drainage or septal hematoma. EARS: Bilateral pinnae and external canals appear within normal limits. Bilateral tympanic membranes without erythema, dullness or perforation. No hemotympanum. CARDIOVASCULAR: Regular rate and rhythm without murmurs, gallops, or rubs. RESPIRATORY: Breath sounds equal bilaterally. No accessory muscle use. MUSCULOSKELETAL: No cyanosis. Mild edema of the left wrist. Full range of motion of the left wrist. 2+ radial pulse. Radial, ulnar, and median nerves intact. Tenderness to palpation especially over the radial aspect. NEUROLOGICAL: Awake and alert. Cranial nerves II through XII intact. Motor and sensory grossly within normal limits. Five out of 5 muscle strength in all muscle groups. Normal speech. Data Data Last Documented VS Vital Signs Date Time Temp Pulse Resp B/P (MAP) Pulse Ox O2 Delivery O2 Flow Rate FiO2 06/06/17 19:31 215/95 (135) 06/06/17 16:29 97.9 [address] Facial Bones W/O Iv Cont (06/06/17 ) Ct Brain W/O Iv Contrast(Rout) (06/06/17 ) Wrist, Complete (Zcg7nht) (06/06/17 ) Chest, Single Ap (06/06/17 ) Acetaminophen (Tylenol) (06/06/17 18:30) Clonidine (Catapres) (06/06/17 19:30) Splint Or Brace Apply/Monitor (06/06/17 19:19) [facility] Medical Decision Making Medical Screen Exam Complete: Yes Emergency Medical Condition: Yes Medical Record Reviewed: Yes Differential Diagnosis Fracture, laceration, contusion, abrasion, head injury Narrative Course 77-year-old male presents to the emergency room for evaluation of head injury, left wrist pain, and multiple abrasions after a mechanical fall just prior to arrival. Patient states he tripped and fell walking out of his house. Fell forward on outstretched hands and then struck his head on the concrete. There was no loss of consciousness but he is on Plavix.. Reports moderate headache. No focal neurological deficits. Physical exam reveals an abrasion to the forehead and bilateral hands. There is a laceration on the right hand. There is moderate edema and ecchymosis of the left wrist. Left wrist is neurovascularly intact with 2+ radial pulse. Full range of motion. Mild tenderness to palpation of the radial aspect. CT of the head and face are negative. X-ray of the left wrist shows probable triquetral fracture. Patient was placed in volar splint. He was given Tylenol for pain in the ED. His blood pressure was incidentally high but patient is due for his nighttime medications. He was even clonidine. I suspect hypertension as an extra of white coat syndrome, pain, and being passed to her medications. After clonidine it began to come down. Laceration was repaired, see procedure note for details. Patient discharged with prescription for Lortab, wound care instructions, orthopedic injection, and told to follow-up with the primary care physician or return for worsening symptoms. He understands and agrees to plan. Procedures Procedure Narrative LACERATION LOCATION: Right hand LENGTH: 1 cm NUMBER OF STITCHES/PANKAJ: 3 simple interrupted REPAIR: The area of the laceration was prepped with Betadine and sterilely draped. The laceration was infiltrated with 1% lidocaine. The wound was copiously irrigated and explored without evidence of foreign body, tendon injury or neurovascular injury. The wound was closed using 5-0 Prolene. This was a single layer repair. A sterile dressing was applied. The patient was advised to keep the dressing clean and dry. Patient tolerated the procedure well. Diagnosis Primary Impression: Left hand fracture Qualified Codes: S62.92XA - Unspecified fracture of left wrist and hand, initial encounter for closed fracture Additional Impressions: Closed head injury Qualified Codes: S09.90XA - Unspecified injury of head, initial encounter Laceration of right hand Qualified Codes: S61.411A - Laceration without foreign body of right hand, initial encounter Referrals: Primary Care Physician Additional Instructions: keep wound clean and dry. Apply triple antibiotic ointment daily. Stitches out in 7-10 days. Keep splint on until follow-up. Elevate and apply ice. Tylenol or Lortab for pain. Follow-up with her primary care physician. Return for worsening symptoms. Disposition: 01 DISCHARGE HOME Condition: Stable Subha De La Cruz Jun 06, 2017 17:59
[2017-06-06] MEDS ORDERED: ACETAMINOPHEN 325 MG TAB PO ONE (18:30)
--- NOTE | 2017-06-06 18:34 | RADRPT ---
EXAM DATE/TIME: 06/06/2017 18:10 [facility] COMPARISON: No previous studies available for comparison. INDICATIONS : Fall. Left wrist pain. MEDICAL HISTORY : None. SURGICAL HISTORY : None. ENCOUNTER: Initial ACUITY: 1 day PAIN SCORE: 8/10 LOCATION: Left upper extremity FINDINGS: There is an avulsion fracture from the dorsum of the wrist seen on the lateral view with overlying so ft tissue swelling. Origin is probably triquetral. No dislocation. CONCLUSION: 1. Avulsion fracture dorsal aspect of wrist with overlying soft tissue swelling, probably triquetral in origin. Adam Cartagena MD on June 06, 2017 at 18:31 Board Certified Radiologist. This report was verified electronically.
--- NOTE | 2017-06-06 18:35 | RADRPT ---
EXAM DATE/TIME: 06/06/2017 18:10 [facility] COMPARISON: CHEST SINGLE AP, July 30, 2015, 11:31. INDICATIONS : Fall. Right side chest pain. MEDICAL HISTORY : None. SURGICAL HISTORY : None. ENCOUNTER: Initial ACUITY: 1 day PAIN SCORE: 5/10 LOCATION: Bilateral chest FINDINGS: A single view of the chest demonstrates the lungs to be symmetrically aerated without evidence of mas s, infiltrate or effusion. The cardiomediastinal contours are unremarkable. Osseous structures are intact. CONCLUSION: 1. No active disease. Tortuous aorta. Adam Cartagena MD on June 06, 2017 at 18:32 Board Certified Radiologist. This report was verified electronically.
--- NOTE | 2017-06-06 19:13 | RADRPT ---
EXAM DATE/TIME: 06/06/2017 18:55 [facility] COMPARISON: No previous studies available for comparison. INDICATIONS : Fell and hit right head and face. RADIATION DOSE: 62.06 CTDIvol (mGy) MEDICAL HISTORY : Hypertension. Anticoagulant therapy. Diabetes. SURGICAL HISTORY : Bilateral cataracts ENCOUNTER: Initial ACUITY: 1 day PAIN SCALE: 6/10 LOCATION: Right cranial TECHNIQUE: Multiple contiguous axial images were obtained of the head. Using automated exposure control and adj ustment of the mA and/or kV according to patient size, radiation dose was kept as low as reasonably a chievable to obtain optimal diagnostic quality images. DICOM format image data is available electro nically for review and comparison. FINDINGS: CEREBRUM: The ventricles are normal for age. No evidence of midline shift, mass lesion, hemorrhage or acute in farction. No extra-axial fluid collections are seen. POSTERIOR FOSSA: The cerebellum and brainstem are intact. The 4th ventricle is midline. The cerebellopontine angle i s unremarkable. EXTRACRANIAL: The visualized portion of the orbits is intact. SKULL: The calvaria is intact. No evidence of skull fracture. CONCLUSION: No acute intracranial abnormalities. Right periorbital soft tissue swelling. Adam Cartagena MD on June 06, 2017 at 19:08 Board Certified Radiologist. This report was verified electronically.
--- NOTE | 2017-06-06 19:21 | RADRPT ---
EXAM DATE/TIME: 06/06/2017 18:55 [facility] COMPARISON: No previous studies available for comparison. INDICATIONS : Fell and hit right head and face. RADIATION DOSE: 34.92 CTDIvol (mGy) ; Patient motion MEDICAL HISTORY : Hypertension. Diabetes. Anticiagulant therapy. SURGICAL HISTORY : Bilateral cataract. ENCOUNTER: Initial ACUITY: 1 day PAIN SCORE: 5/10 LOCATION: Right facial TECHNIQUE: Volumetric scanning of the facial bones was performed. Using automated exposure control and adjustme nt of the mA and/or kV according to patient size, radiation dose was kept as low as reasonably achiev able to obtain optimal diagnostic quality images. DICOM format image data is available electronicall y for review and comparison. FINDINGS: There is right periorbital soft tissue swelling. No acute fracture. No air-fluid levels. No bony dest ructive changes. CONCLUSION: 1. Right periorbital soft tissue swelling. No acute fracture. Adam Cartagena MD on June 06, 2017 at 19:18 Board Certified Radiologist. This report was verified electronically.
[2017-06-06] MEDS ORDERED: cloNIDine HCL 0.1 MG TAB PO ONE (19:30)
[2017-06-06 19:31] VITALS: BP 215/95
[2017-06-06] MEDS ORDERED: HYDR-3516 PO (20:02)
== END 2017-06-06 19:58 | disposition home or self-care (01) ==
LOC: PHEFT 15:42
DX: S62.92XA Unspecified fracture of left hand, initial encounter for closed fracture (principal); S09.90XA Unspecified injury of head, initial encounter; S61.411A Laceration without foreign body of right hand, initial encounter; R07.9 Chest pain, unspecified; W18.09XA Striking against other object with subsequent fall, initial encounter; Y92.008 Other place in unspecified non-institutional (private) residence as the place of occurrence of the external cause
CPT/HCPCS: 12001; 70450; 70486; 71010; 73110; 99284; L3908

== ENCOUNTER 2017-12-31 06:47 | Day surgery (SDC) | payer MEDICARE ==
[~2017-12-31] VITALS: Ht 180.3 cm; Wt 92.3 kg
[~2017-12-31 06:47] MED LIST changes: -CEPH-460 PO; +GABA600T PO; +HYDR-3516 PO; +LIPI40TA PO; -OMEG300C5 PO; +PLAV75TA29 PO; +TAMS0.4C4 PO; -TAMS5CAP PO; -TYLE325T PO
[2017-12-31] MEDS ORDERED: IOHEXOL 350 MG/ML 50 ML BTL (for Cath Lab) OTHER ONE (06:48)
[2017-12-31] MEDS ORDERED: IOHEXOL 350 MG/ML 100 ML BTL (for Cath Lab) OTHER ONE (06:48)
[2017-12-31] MEDS ORDERED: SODIUM CHLOR 0.9% 1000 ML INJ 1,000 ML IV SCH ×2 (07:00→08:00)
[2017-12-31 07:26] VITALS: BP 173/82; PULSE 68; RESP 18; TEMP 97.6; O2SAT 96
[2017-12-31] MEDS ORDERED: GABA800T PO (07:43)
[2017-12-31] MEDS ORDERED: FLUT50SP EACH NARE (07:43)
[2017-12-31] MEDS ORDERED: TYLE325T PO (07:43)
[2017-12-31] MEDS ORDERED: MULTTAB67 PO (07:43)
[2017-12-31] MEDS ORDERED: COQ150CA PO (07:43)
[2017-12-31] MEDS ORDERED: GABA400C5 PO (07:43)
[2017-12-31] MEDS ORDERED: MOBI10CR TOPICAL (07:43)
[2017-12-31] MEDS ORDERED: ARTIDRO EACH EYE (07:43)
[2017-12-31] MEDS ORDERED: MIDAZOLAM HCL 2 MG/2 ML VIAL ONE (08:06)
[2017-12-31] MEDS ORDERED: HEPARIN-NS/PF INJ 1,000 ML ONE (08:06)
--- NOTE | 2017-12-31 09:13 | CATHPROC ---
[employer] HIS Report Study Information Study Number Admission Scheduled Start Study Start [id number] Dec 31 2017 6:47AM 12/31/2017 Dec 31 2017 7:52AM [facility] Endovascular Study Admit Source Facility Department Other [facility] - Store Administrative Assistant Physician and Clinical Staff Initial Naseem Barlow Securities Teller Deven Amin,SADE Recorder Cyrus Iverson,RT(R) Recorder Kera Aleman,SADE Scrub Pearl Wu,CABLEWAY OPERATOR TECH2 Procedures Performed Procedure Location (Site) Vessel Name Abdominal Angiogram Abd Aorta (A3) Aorta Equipment Time Gauge Maker Apprentice Description Size Mfg Part Number Used/Scraped [id number] 08:22 CORDIS/ HANDY RIM SUPER TORQUE CATHETER FR 5 Used *[id number] *[id number] 08:22 MALLINCKRODT SYRINGE, ANGIOMAT 150ML 150ML [id number] Used [id number] 08:22 [employer] BLANKET,WARM AIR CCL * Used *[id number] 08:22 [employer] PACK, CCL CUSTOM * Used *[id number] 08:22 [employer] PACER PEN, SKIN DUAL W/ RULER * Used *[id number] PIG ANG 145 DXTERITY [id number] 08:40 MEDTRONIC FR 5 Used CATHETER *[id number] 08:22 [employer] MEDICAL WIRE, EXCHANGE 260CM 3MMJ 260CM Used *[id number] 08:22 NAMIC MANIFOLD, 4 PORT * Used *[id number] 08:22 NAMIC TUBING, HIGH PRESSURE 48" 48" Used *[id number] 08:32 NAMIC TUBING, HIGH PRESSURE 48" 48" Used *[id number] TUBING, PRESSURE INJECTION [id number] 08:32 NAMIC 72" Used 72" *[id number] TUBING, PRESSURE INJECTION [id number] 08:22 NAMIC 72" Used 72" *[id number] 08:22 [employer]ED OMNIPAQUE, 300 MG, 150ML 150ML [id number] Used [id number] 08:22 TERUMO MEDICAL SHEATH, FR5 TERUMO (10CM) FR 5 Used *[id number] WIRE, ANGLE GLIDE STIFF .035 [id number] 08:22 TERUMO MEDICAL/HANDY 260CM Used 260CM *[id number] History: Allergies Allergy Reaction No Known Allergies History: Risk Factors Family History of Hypertension Dyslipidemia Previous GA Previous Heart Failure Premature CAD Yes Yes No No No Prior Valve Prior PCI Prior CABG Surgery No No No Cerebrovascular Peripheral Artery Chronic Lung On Dialysis Diabetes Diabetes Therapy Disease Disease Disease No No Yes No Yes Oral History: Stress Tests Stress or Imaging Studies Performed No History: Other Current Smoker No Labs Hgb (g/dl) Hct (%) WBC (l/cumm) Platelets (thousands) 11.60-17.00 35.00-51.00 4.00-11.00 150.00-450.00 14.1 41.7 7.1 225 Glucose (mg/dl) BUN (mg/dl) Creatinine (mg/dl) BUN:Creatinine (1:x) 74.00-106.00 7.00-18.00 0.50-1.30 10.00-20.00 155 14 1.0 14 Na (meq/l) K (meq/l) 136.00-145.00 3.50-5.10 141 4.1 INR (PTT:PT) 0.90-1.10 0.9 CPK-MB (ng/ML) 0.50-3.60 Not Drawn Medication Medication Total Dose (Bolus/Oral) Medication Total Dosage/Unit 1% XYLOCAINE 20 mL FENTANYL 50 mcg VERSED 2 mg Medications (Bolus/Oral) Medication Time Given Dosage/Unit Administered By Reason VERSED 12/31/2017 8:32:23 AM 2 mg Deven Amin 2 mg VERSED given in lab by Deven Amin, SADE in Left Antecubital via Peripheral IV. Ordered by Naseem Medina. FENTANYL 12/31/2017 8:33:06 AM 50 mcg Deven Amin 50 mcg FENTANYL given in lab by Deven Amin, ASDE in Left Antecubital via Peripheral IV. Ordered by Naseem Pina. 1% XYLOCAINE 12/31/2017 8:39:26 AM 20 mL Naseem Pina 20 mL 1% XYLOCAINE given in lab by Naseem Pina in Right Groin via Subcutaneous. Ordered by Naseem Pina. Initial Case Assessment Cardiovascular HR Rhythm NIBP Chest Pain 64 NSR 171/78 0 Edema Present Skin color Skin None Normal Warm Dry Circulatory - Right Pulses Dorsalis Pedis Posterior Tibial Femoral d d 3 Scale (0,1,2,3,4,d) Circulatory - Left Pulses Dorsalis Pedis Posterior Tibial Femoral 0 d 3 Scale (0,1,2,3,4,d) Circulatory - Lower Extremities Color Lower Right Color Lower Left Normal Normal Neurological State Oriented to time-place- Alert Moves all extremities person Respiration - General Respiration Rate SpO2 (%) (B/min) 19 99 Final Case Assessment Cardiovascular HR Rhythm NIBP Chest Pain 70 NSR 158/78 0 Edema Present Skin color Skin None Normal Warm Dry Circulatory - Right Pulses Dorsalis Pedis Posterior Tibial Femoral 0 d 3 Scale (0,1,2,3,4,d) Circulatory - Left Pulses Dorsalis Pedis Posterior Tibial Femoral 1 1 3 Scale (0,1,2,3,4,d) Circulatory - Lower Extremities Color Lower Right Color Lower Left Normal Normal Neurological State Oriented to time-place- Alert Moves all extremities person Respiration - General Respiration Rate SpO2 (%) O2 (lpm) (B/min) 14 98 2 Chronological Log Time Study Chronological Log 7:59:37 Patient arrived via Bed. 7:59:39 Patient Name, D.O.B, / Armband Verified By R.N. 7:59:41 Consent signed by the physician and the patient and verified by the Store Administrative Assistant staff. 8:00:10 Pre-op and post- op instructions given; patient acknowledges understanding of instructions. 8:00:12 Verbal Stimulation=2 Physical Stimulation=2 Airway=2 Respiration=2 TOTAL=8. (0=absent, 1=li mited, 2=present) 8:00:22 Presedation assessment performed by Store Administrative Assistant RN. 8:00:25 Patient has been NPO for More than 6Hrs. 8:00:27 Skin Breakdown-none present per patient. Vitals capture started with the following parameters, Patient=Adult, Interval=5 min, Initial Pr sctewm=093 mmHg, 8:04:06 Deflation Rate=5 mmHg, Cuff placed on Right Ankle 8:04:53 HR=66 bpm, WGJR=586/75 mmhg, SpO2=98.0 %, Resp=16 B/min, Pain=0, Ozzie=10, Paul=2 8:09:50 HR=66 bpm, LDFM=585/74 mmhg, SpO2=96.0 %, Resp=15 B/min, Pain=0, Ozzie=10, Paul=2 8:13:24 Verbal Stimulation=2 Physical Stimulation=2 Airway=2 Respiration=2 TOTAL=8. (0=absent, 1=li mited, 2=present) 8:14:51 HR=67 bpm, NURO=556/78 mmhg, SpO2=96.0 %, Resp=17 B/min, Pain=0, Ozzie=10, Paul=2 8:16:56 Patient Warmer Placed on the Table. 8:16:57 Disposable Defibrillator Pads Placed On Patient. 8:16:58 Stephanie Prominences Protected 8:17:04 A # 20 IV was noted in the Antecubital (left). Grade = 0 0.9NS infusing at KVO 8:17:20 History and physical on the chart or being dictated. Assessment: Initial Case, HR=64 BPM, Rhythm=NSR, AUKE=720/78 mmhg, Chest Pain=0, Edema=None, Color=Normal, Skin = Warm, Dry Right Pulses: Ramsey Ped=d, Post Tib=d, Femoral=3 Left Pulses: Ramsey Ped=0, Post Tib=d, Femoral=3 8:17:25 Lower Right Extremities: Color=Normal Lower Left Extremities: Color=Normal Neurological: State=Alert, Ox3, LEON Respiration: Resp=19 B/min, SpO2=99 % 8:18:26 Bilateral groins prepped with 2% chlorhexidine, and draped after a 3 minute waiting time. 8:19:52 HR=65 bpm, HCQP=557/83 mmhg, SpO2=99.0 %, Resp=12 B/min, Pain=0, Ozzie=10, Paul=2 8:20:17 paged 8:20:20 MD responded 8:20:34 Reference ECG taken 8:24:54 HR=62 bpm, CEDG=772/75 mmhg, SpO2=99.0 %, Resp=16 B/min, Pain=0, Ozzie=10, Paul=2 8:29:55 HR=65 bpm, NECK=389/79 mmhg, SpO2=99.0 %, Resp=16 B/min, Pain=0, Ozzie=10, Paul=2 8:32:01 MD arrived. 8:32:23 2 mg VERSED given in lab by Deven Amin, RN in Left Antecubital via Peripheral IV. León vargas by Naseem Pina. 8:33:06 50 mcg FENTANYL given in lab by Deven Amin RN in Left Antecubital via Peripheral IV. Or dered by Naseem Pina. 8:34:54 HR=68 bpm, RYEX=621/79 mmhg, SpO2=97.0 %, Resp=14 B/min, Pain=0, Ozzie=10, Paul=2 Time Out. Correct patient, correct procedure, correct physician, labs, allergies, and equipment verified with radiographer cardiac catheterization 8:38:41 team present. Fire risk assesment completed (see hard stop sheet for coding). Time Out Concu rred by MD and individual staff in procedure. 8:39:04 Case Start 8:39:26 20 mL 1% XYLOCAINE given in lab by Naseem Pina in Right Groin via Subcutaneous. Ordered b y Naseem Pina. 8:39:55 HR=66 bpm, OKVV=362/79 mmhg, SpO2=96.0 %, Resp=15 B/min, Pain=0, Ozzie=10, Paul=2 8:40:33 Access site was Right Femoral Artery. 8:40:53 A SHEATH, FR5 TERUMO (10CM) FR 5 was advanced into the Fem Art (right) using the Modified Se wilson technique. A PIG ANG 145 DXTERITY CATHETER FR 5 was advanced over a wire. OMNIPAQUE, 300 MG, 150ML 150ML wa s used 8:41:00 for injections. 8:41:11 Through a PIG ANG 145 DXTERITY CATHETER FR 5, The Abdominal Aorta was injected with 12 cc's of contrast. After removing the current catheter a RIM SUPER TORQUE CATHETER FR 5 was advanced over a WIRE, E XCHANGE 8:42:50 260CM 3MMJ 260CM. 8:44:20 Through a PIG ANG 145 DXTERITY CATHETER FR 5, The Femoral Run-off was injected with 5 cc's p er second. 8:44:20 angiogram of left lower extremity by 8:44:54 HR=66 bpm, LRYB=978/77 mmhg, SpO2=97.0 %, Resp=14 B/min, Pain=0, Ozzie=10, Paul=2 Recorded Pressure: Ao, HR=72, Condition=Condition 1 8:46:49 (Aorta) Ao 185/67/114 8:49:57 HR=72 bpm, ZJZU=687/75 mmhg, SpO2=96.0 %, Resp=14 B/min, Pain=0, Ozzie=10, Paul=2 8:53:29 Case End (Physician broke scrub) 8:54:52 HR=69 bpm, CSKA=902/80 mmhg, SpO2=97.0 %, Resp=14 B/min, Pain=0, Ozzie=10, Paul=2 8:55:00 Catheter(s) removed without difficulty 8:56:17 Sheath removed; pressure applied to access site by ARYA Reinoso 8:59:55 HR=72 bpm, MYCR=256/83 mmhg, SpO2=93.0 %, Resp=16 B/min, Pain=0, Ozzie=10, Paul=2 9:01:20 DOCU called. Spoke to SADE Alcantara 9:04:52 HR=69 bpm, QRUQ=445/78 mmhg, SpO2=96.0 %, Resp=15 B/min, Pain=0, Ozzie=10, Paul=2 9:09:55 HR=69 bpm, IYCP=136/78 mmhg, SpO2=95.0 %, Resp=16 B/min, Pain=0, Ozzie=10, Paul=2 Assessment: Final Case, HR=70 BPM, Rhythm=NSR, KCVB=234/78 mmhg, Chest Pain=0, Edema=None, Col or=Normal, Skin = Warm, Dry Right Pulses: Ramsey Ped=0, Post Tib=d, Femoral=3 Left Pulses: Ramsey Ped=1, Post Tib=1, Femoral=3 9:10:20 Lower Right Extremities: Color=Normal Lower Left Extremities: Color=Normal Neurological: State=Alert, Ox3, LEON Respiration: Resp=14 B/min, SpO2=98 %, O2=2 lpm 9:11:31 No case complications noted. 9:11:32 Sterile dressing applied to site 9:11:34 Cine recording checked. 9:11:35 Bedside Report will be given. 9:11:39 Defibrillator and ground pads removed. Skin intact. 9:11:39 Verbal Stimulation=2 Physical Stimulation=2 Airway=2 Respiration=2 TOTAL=8. (0=absent, 1=l imited, 2=present) 9:16:13 Patient moved to stretcher End Study - Contrast Media Used In Study Contrast Total Opened (mL) Total Used (mL) Total Wasted (mL) Omnipaque 150 130 20 End Study - Maximum Contrast Load Max Contrast Load (mL) 461.6 End Study - Radiation Exposure Fluoro Time (minutes) 2.8 End Study - Patient Disposition Complications Transferred To Interventional Outcome No Store Administrative Assistant Holding successful
--- NOTE | 2017-12-31 09:27 | MA ---
cc: Naseem Pina MD DATE: 12/31/2017 PROCEDURES PERFORMED: 1. Peripheral angiography. 2. Fluoroscopy with interpretation. 3. Descending aortography. METHOD: Risks, benefits and alternatives were discussed with the patient. The patient understood and consented to the procedure. The patient was brought into the catheterization lab, placed on the catheterization table. The right groin was prepped and draped in sterile fashion. The right groin was anesthetized with 2% lidocaine. The right common femoral artery was cannulated and a 5-Polish 11 cm sheath was placed without difficulty. DESCENDING AORTOGRAPHY: Descending aortography was performed in anterior and posterior views using 24 mL contrast injection and good opacification. Descending aortography revealed mild infrarenal descending aortic atherosclerosis. There is severe right renal artery stenosis and mild to moderate left renal artery stenosis. PERIPHERAL ANGIOGRAPHY: 1. Left common iliac artery has mild irregularities. Left external iliac artery at the bifurcation of the internal iliac artery has a 30-40% stenosis. The left internal iliac artery has a 50% ostial stenosis. Remainder of the vessel has mild luminal irregularities. Left common femoral artery has mild luminal irregularities. Left profunda artery has mild luminal irregularities. Left superficial femoral artery has mild to moderate calcium present in the proximal segment; there is a 50% stenosis in the distal superficial femoral artery and proximal popliteal artery. There is a 95% stenosis and some post-stenotic dilatation. Popliteal has minor luminal irregularities and then is occluded distally. There is collateralization primarily to a peroneal vessel, which then collateralizes the dorsalis pedis and posterior tibial distally at the level of the foot. The posterior tibial and anterior tibial vessels are occluded. 2. Right common internal and external iliac arteries have mild luminal irregularities. The right common femoral artery has a 40 % eccentric stenosis. Right profunda artery is patent. Right superficial femoral artery proximally has a 30-40% stenosis. The right superficial femoral artery at the mid to distal segment has a 30% stenosis. Right popliteal artery has a 30% stenosis. The anterior tibial, posterior tibial and peroneal vessels are all occluded. There is collateral vessels to the peroneal, which then feeds the dorsalis pedis and posterior tibial distally. CONCLUSIONS: 1. 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 2. Right renal artery stenosis. 3. Mild infrarenal descending aortic atherosclerosis. 4. Severe left popliteal artery stenosis. PLAN: We will consult Dr. Prado of Vascular Surgery for his opinion. We will continue medical management. Anticipate discharge later today. He has no wounds, but does have bilateral lower extremity claudication symptoms. MD JOVANNI Chavez/SB , 09:08 AM , 09:25 AM
== END 2017-12-31 14:30 | disposition home or self-care (01) ==
LOC: HDOC 06:47 → HDIC 06:48 → HDOC 14:30
PROVIDERS: ATTEND Internal Medicine
DX: I70.202 Unspecified atherosclerosis of native arteries of extremities, left leg (principal); I70.1 Atherosclerosis of renal artery; I70.0 Atherosclerosis of aorta; I10 Essential (primary) hypertension; E11.9 Type 2 diabetes mellitus without complications; E78.5 Hyperlipidemia, unspecified
CPT/HCPCS: 36246; 75625; 75716; 86850; 86900; 86901; 99152; C1769; C1893; J1644; J2250; J3010; J7030; Q9967